=== PATIENT | female | born 1930 | race Caucasian/White ===

== ENCOUNTER 2017-04-03 14:32 | Emergency (ER) | payer MEDICARE, OTHER ==
[2017-04-03] MEDS ORDERED: SODIUM CHLORIDE 0.9% 500 ML IV STA (15:05)
[2017-04-03] MEDS ORDERED: SODIUM CHLORIDE 0.9% 1,000 ML IV STA (15:05)
[2017-04-03] MEDS ORDERED: RX INFO: IV CONTRAST WAS GIVEN 1 EACH MISC MISCELLANE PRN (15:05)
[2017-04-03] MEDS ORDERED: MORPHINE SULFATE 4 MG/ML SYRINGE IV STA (15:05)
--- NOTE | 2017-04-03 15:25 | ED ---
General Adult HPI - General Source: patient, EMS, RN notes reviewed, old records reviewed Mode of arrival: EMS Limitations: no limitations <Michael Velásquez - Last Filed: 04/03/17 15:24> <Michael Newton - Last Filed: 04/03/17 19:28> - General Chief complaint: Fall Stated complaint: Fall Time Seen by Provider: 04/03/17 14:34 - History of Present Illness Initial comments: This is a 78-year-old female to the ER for evaluation today. Patient denies they for evaluation regarding follow-up. Patient is unsure of the events surrounding fall, unsure why she fell but she thinks was mechanical she was walking to her dorm ended up on the ground. Patient complains of breath. Also complains of hitting her head. No blood thinners. Patient denies headache chest pain or shortness of breath. No abdominal pain. (Michael Velásquez) - Related Data Home Medications Medication Instructions Recorded Confirmed ALPRAZolam [Xanax] 0.25 mg PO BID 04/03/17 04/03/17 Apixaban [Eliquis] 2.5 mg PO BID 04/03/17 04/03/17 Aspirin 81 mg PO DAILY@119904/03/17 04/03/17 Atorvastatin [Lipitor] 40 mg PO DAILY@199904/03/17 04/03/17 Cetirizine HCl 10 mg PO QA 04/03/17 04/03/17 Cholecalciferol (Vitamin D3) 2,000 unit PO 04/03/17 04/03/17 [Vitamin D3] Cyanocobalamin [Vitamin B-12] 500 mcg PO DAILY@199904/03/17 04/03/17 Furosemide [Lasix] 40 mg PO BID@0800,1400 04/03/17 04/03/17 Levothyroxine Sodium [Synthroid] 100 mcg PO DAILY@199904/03/17 04/03/17 Magnesium Oxide [Mag-Ox] 400 mg PO DAILY@119904/03/17 04/03/17 Metoprolol Succinate (ER) [Toprol 100 mg PO QA 04/03/17 04/03/17 Xl] Omeprazole [PriLOSEC] 20 mg PO DAILY@199904/03/17 04/03/17 QUEtiapine FUMARATE [SEROquel] 25 mg PO QAM 04/03/17 04/03/17 Rivastigmine 4.6MG/24Hr Patch 1 patch TRANSDERM Q24HR 04/03/17 04/03/17 [Exelon 4.6MG/24Hr Patch] Sennosides [Senna] 8.6 mg PO DAILY@199904/03/17 04/03/17 Sertraline [Zoloft] 100 mg PO QA 04/03/17 04/03/17 Spironolactone [Aldactone] 25 mg PO QAM 04/03/17 04/03/17 Allergies Allergy/AdvReac Type Severity Reaction Status Date / Time No Known Allergies Allergy Unverified 04/03/17 15:07 Review of Systems ROS Other: All systems not noted in ROS Statement are negative. <Michael Velásquez - Last Filed: 04/03/17 15:24> ROS Other: All systems not noted in ROS Statement are negative. <Michael Newton - Last Filed: 04/03/17 19:28> ROS Statement: Those systems with pertinent positive or pertinent negative responses have been documented in the HPI. Past Medical History Past Medical History: Hypertension History of Any Multi-Drug Resistant Organisms: None Reported Past Surgical History: Appendectomy, Hysterectomy Past Psychological History: Depression Smoking Status: Current every day smoker Past Alcohol Use History: None Reported Past Drug Use History: None Reported <Michael Velásquez - Last Filed: 04/03/17 15:24> General Exam Limitations: no limitations General appearance: alert, in no apparent distress Head exam: Present: atraumatic, normocephalic, normal inspection Eye exam: Present: normal appearance, PERRL, EOMI. Absent: scleral icterus, conjunctival injection, periorbital swelling ENT exam: Present: normal exam, mucous membranes moist Neck exam: Present: normal inspection. Absent: tenderness, meningismus, lymphadenopathy Respiratory exam: Present: normal lung sounds bilaterally. Absent: respiratory distress, wheezes, rales, rhonchi, stridor Cardiovascular Exam: Present: regular rate, normal rhythm, normal heart sounds. Absent: systolic murmur, diastolic murmur, rubs, gallop, clicks GI/Abdominal exam: Present: soft, normal bowel sounds. Absent: distended, tenderness, guarding, rebound, rigid Extremities exam: Present: normal inspection, full ROM, normal capillary refill. Absent: tenderness, pedal edema, joint swelling, calf tenderness Back exam: Present: normal inspection Neurological exam: Present: alert, oriented X3, CN II-XII intact Psychiatric exam: Present: normal affect, normal mood Skin exam: Present: warm, dry, intact, normal color. Absent: rash <Michael Velásquez - Last Filed: 04/03/17 15:24> EKG Findings - EKG Comments: EKG Findings:: EKG shows A. fib rate of 60, QRS 100, QTC 456 <Michael Velásquez - Last Filed: 04/03/17 15:24> Medical Decision Making <Michael Velásquez - Last Filed: 04/03/17 15:24> - Lab Data Result diagrams: 04/03/17 16:27 04/03/17 16:27 <Michael Newton - Last Filed: 04/03/17 19:28> - Medical Decision Making Patient felt short of breath after the CAT scan I did an EKG showed atrial fibrillation at 80 bpm QRS is 92 QT interval 386 QTC is 467 per patient's EKG shows no acute changes from the earlier EKG. I went back into reevaluate the patient she stated the shortness of breath had subsided and she is feeling better now. Patient is without symptoms shoulder x-ray shows no acute abnormality Family is aware that the patient has been unstable the patient is unwilling to move out of her current facility and no one is willing to stay with her and they are aware of the fall risks that this presents to the daughter states she will be looking into more care or possibly moving her to a fdc. (Michael Newton) - Lab Data Lab Results 04/03/17 04/03/17 04/03/17 Range/Units 15:27 16:27 16:27 WBC 4.9 (3.8-10.6) k/uL RBC 3.84 (3.80-5.40) m/uL Hgb 12.1 (11.4-16.0) gm/dL Hct 36.6 (34.0-46.0) % MCV 95.3 (80.0-100.0) fL MCH 31.5 (25.0-35.0) pg MCHC 33.1 (31.0-37.0) g/dL RDW 15.2 (11.5-15.5) % Plt Count 170 (150-450) k/uL Neutrophils % 63 % Lymphocytes % 25 % Monocytes % 7 % Eosinophils % 2 % Basophils % 0 % Neutrophils # 3.1 (1.3-7.7) k/uL Lymphocytes # 1.2 (1.0-4.8) k/uL Monocytes # 0.4 (0-1.0) k/uL Eosinophils # 0.1 (0-0.7) k/uL Basophils # 0.0 (0-0.2) k/uL PT 11.6 (9.0-12.0) sec INR 1.2 H (<1.2) APTT 25.6 (22.0-30.0) sec Sodium (137-145) mmol/L Potassium (3.5-5.1) mmol/L Chloride (98-107) mmol/L Carbon Dioxide (22-30) mmol/L Anion Gap mmol/L BUN (7-17) mg/dL Creatinine (0.52-1.04) mg/dL Est GFR (MDRD) Af Amer (>60 ml/min/1.73 sqM) Est GFR (MDRD) Non-Af (>60 ml/min/1.73 sqM) Glucose (74-99) mg/dL Calcium (8.4-10.2) mg/dL Phosphorus (2.5-4.5) mg/dL Magnesium (1.6-2.3) mg/dL Total Bilirubin (0.2-1.3) mg/dL AST (14-36) U/L ALT (9-52) U/L Alkaline Phosphatase (38-126) U/L Total Creatine Kinase (30-135) U/L CK-MB (CK-2) (0.0-2.4) ng/mL CK-MB (CK-2) Rel Index Troponin I (0.000-0.034) ng/mL Total Protein (6.3-8.2) g/dL Albumin (3.5-5.0) g/dL Urine Color Light Yellow Urine Appearance Clear (Clear) Urine pH 5.5 (5.0-8.0) Ur Specific Fitzhugh 1.007 (1.001-1.035) Urine Protein Negative (Negative) Urine Glucose (UA) Negative (Negative) Urine Ketones Negative (Negative) Urine Blood Small H (Negative) Urine Nitrite Negative (Negative) Urine Bilirubin Negative (Negative) Urine Urobilinogen <2.0 (<2.0) mg/dL Ur Leukocyte Esterase Negative (Negative) Urine RBC 2 (0-5) /hpf Urine WBC 1 (0-5) /hpf Ur Squamous Epith Cells <1 (0-4) /hpf Urine Bacteria Rare H (None) /hpf Hyaline Casts 3 H (0-2) /lpf 04/03/17 04/03/17 Range/Units 16:27 16:27 WBC (3.8-10.6) k/uL RBC (3.80-5.40) m/uL Hgb (11.4-16.0) gm/dL Hct (34.0-46.0) % MCV (80.0-100.0) fL MCH (25.0-35.0) pg MCHC (31.0-37.0) g/dL RDW (11.5-15.5) % Plt Count (150-450) k/uL Neutrophils % % Lymphocytes % % Monocytes % % Eosinophils % % Basophils % % Neutrophils # (1.3-7.7) k/uL Lymphocytes # (1.0-4.8) k/uL Monocytes # (0-1.0) k/uL Eosinophils # (0-0.7) k/uL Basophils # (0-0.2) k/uL PT (9.0-12.0) sec INR (<1.2) APTT (22.0-30.0) sec Sodium 141 (137-145) mmol/L Potassium 3.9 (3.5-5.1) mmol/L Chloride 107 (98-107) mmol/L Carbon Dioxide 25 (22-30) mmol/L Anion Gap 9 mmol/L BUN 22 H (7-17) mg/dL Creatinine 0.99 (0.52-1.04) mg/dL Est GFR (MDRD) Af Amer >60 (>60 ml/min/1.73 sqM) Est GFR (MDRD) Non-Af 53 (>60 ml/min/1.73 sqM) Glucose 97 (74-99) mg/dL Calcium 8.9 (8.4-10.2) mg/dL Phosphorus 3.7 (2.5-4.5) mg/dL Magnesium 2.0 (1.6-2.3) mg/dL Total Bilirubin 0.6 (0.2-1.3) mg/dL AST 27 (14-36) U/L ALT 32 (9-52) U/L Alkaline Phosphatase 83 (38-126) U/L Total Creatine Kinase 43 (30-135) U/L CK-MB (CK-2) 0.9 (0.0-2.4) ng/mL CK-MB (CK-2) Rel Index 2.1 Troponin I <0.012 (0.000-0.034) ng/mL Total Protein 6.4 (6.3-8.2) g/dL Albumin 3.6 (3.5-5.0) g/dL Urine Color Urine Appearance (Clear) Urine pH (5.0-8.0) Ur Specific Fitzhugh (1.001-1.035) Urine Protein (Negative) Urine Glucose (UA) (Negative) Urine Ketones (Negative) Urine Blood (Negative) Urine Nitrite (Negative) Urine Bilirubin (Negative) Urine Urobilinogen (<2.0) mg/dL Ur Leukocyte Esterase (Negative) Urine RBC (0-5) /hpf Urine WBC (0-5) /hpf Ur Squamous Epith Cells (0-4) /hpf Urine Bacteria (None) /hpf Hyaline Casts (0-2) /lpf Disposition <Michael Velásquez - Last Filed: 04/03/17 15:24> Time of Disposition: 19:27 <Michael Newton - Last Filed: 04/03/17 19:28> Clinical Impression: Fall, Head injury, Compression fracture Disposition: HOME SELF-CARE Instructions: Fall Prevention for Older Adults (ED), Head Injury (ED) Referrals: Fani Ackerman MD [Primary Care Provider] - 1-2 days
[2017-04-03 15:52] LABS: Appearance,Urine Clear (Clear); Bacteria,Urine Rare /hpf; Bilirubin,Urine Negative (Negative); Glucose,Urine (UA) Negative (Negative); Ketones,Urine Negative (Negative); Leukocyte Esterase,Urine Negative (Negative); Nitrite,Urine Negative (Negative); PH, Urine 5.5 (5.0-8.0); Particle Count 620; Protein,Urine Negative (Negative); RBC,Urine 2 /hpf (0-5); Specific Gravity,Urine 1.007 (1.001-1.035); Squamous Epithelial Cell,Urine <1 /hpf (0-4); UA Billing (MACRO vs. MICRO) MICRO; Urobilinogen,Urine <2.0 mg/dL (<2.0); WBC,Urine 1 /hpf (0-5)
[2017-04-03 16:45] LABS: Basophils % (A) 0 %; CH 32.2; Eosinophils # (A) 0.1 k/uL (0-0.7); Eosinophils % (A) 2 %; HCT 36.6 % (34.0-46.0); HDW 2.91; HGB 12.1 gm/dL (11.4-16.0); Luc % (Auto) 2; Lymphocytes # (A) 1.2 k/uL (1.0-4.8); Lymphocytes % (A) 25 %; MCH 31.5 pg (25.0-35.0); MCHC 33.1 g/dL (31.0-37.0); MCV 95.3 fL (80.0-100.0); Mean Platelet Volume 7.7; Monocytes # (A) 0.4 k/uL (0-1.0); Monocytes % (A) 7 %; Neutrophils # (A) 3.1 k/uL (1.3-7.7); Neutrophils % (A) 63 %; RBC 3.84 m/uL (3.80-5.40); RDW 15.2 % (11.5-15.5); WBC 4.9 k/uL (3.8-10.6); WBC (Perox) 5.29
[2017-04-03 16:53] LABS: INR 1.2 (<1.2); Partial Thromboplastin Time 25.6 sec (22.0-30.0); Prothrombin Time 11.6 sec (9.0-12.0)
[2017-04-03 16:55] LABS: ALT 32 U/L (9-52); AST 27 U/L (14-36); Alkaline Phosphatase 83 U/L (38-126); Anion Gap 9 mmol/L; Blood Urea Nitrogen 22 mg/dL (7-17); Calcium 8.9 mg/dL (8.4-10.2); Carbon Dioxide 25 mmol/L (22-30); Chloride 107 mmol/L (98-107); Glucose 97 mg/dL (74-99); Non-African American GFR(MDRD) 53 (>60 ml/min/1.73 sqM); Phosphorous 3.7 mg/dL (2.5-4.5); Potassium 3.9 mmol/L (3.5-5.1); Sodium 141 mmol/L (137-145); Total Bilirubin 0.6 mg/dL (0.2-1.3); Total Protein 6.4 g/dL (6.3-8.2)
[2017-04-03 17:06] LABS: Creatine Kinase 43 U/L (30-135)
[2017-04-03 17:20] LABS: Creatine Kinase MB 0.9 ng/mL (0.0-2.4); Troponin I <0.012 ng/mL (0.000-0.034)
--- NOTE | 2017-04-03 17:49 | CT ---
EXAMINATION TYPE: CT brain fina carrillo DATE OF EXAM: 04/03/2017 COMPARISON: NONE HISTORY: Patient poor historian. Patient fell today. CT DLP: 1623 mGycm Automated exposure control for dose reduction was used. TECHNIQUE: CT scan of the head and cervical spine are performed without contrast. FINDINGS: There is cerebral cortical atrophy. There is mild patchy hypodensity around the frontal h orns of the lateral ventricles. There is no mass effect nor midline shift. There is no sign of intrac ranial hemorrhage. The calvarium is intact. Cervical vertebra fairly normal alignment. There is a few millimeter anterior subluxation of C6 in re lation to C7. There is narrowing of disc spaces throughout the cervical spine. The skull base is inta ct. There is no evidence of a fracture. IMPRESSION: Cerebral atrophy. Chronic small vessel ischemia. No acute intracranial abnormality. Multilevel moderate cervical spondylosis. No fracture.
--- NOTE | 2017-04-03 17:55 | CT ---
EXAMINATION TYPE: CT ChestAbdPelvis w con DATE OF EXAM: 04/03/2017 COMPARISON: NONE HISTORY: Patient poor historian. Patient fell today. CT DLP: 1358 mGycm Automated exposure control for dose reduction was used. CONTRAST: CT scan of the chest, abdomen and pelvis is performed without Oral Contrast and with IV Contrast, pat ient injected with 80 mL of Visipaque 320. FINDINGS: There is coarse interstitial density in the mid and lower lung llamas. Heart is significantly enlarge d. There is no pleural effusion. There is no pneumothorax. Thoracic aorta is atheromatous. There is n o pericardial effusion. There is no pleural effusion. Liver shows no focal defect. There are multiple gallstones. Bile ducts are not dilated. Spleen appear s normal. There is no pancreatic mass. There is a 4 cm cortical cyst on the upper pole right kidney. There is no hydronephrosis. There is a 7 mm calculus in the lower pole right kidney. There is no retroperitoneal adenopathy. Abdominal aorta is atheromatous. There is no ascites. Bladder distends smoothly. There is no sign of a pelvic mass. I see no intestinal wall thickening. There are no dilated loops. There is no evidence of a bowel obst ruction. There are spondylotic changes throughout the thoracic and lumbar spine. There is 15-20% loss of height of L2 vertebral body of uncertain age. I see no bony destructive process. IMPRESSION: Cardiomegaly. Prominent fibrotic changes with some atelectasis at the lung bases. Choleli thiasis. Right renal cortical cyst. No evidence of traumatic injury within the abdomen and pelvis. No nobstructing right renal calculus. Mild L2 compression deformity of uncertain age. No rib fracture seen.
[2017-04-03 18:42] VITALS: BP 144/69; PULSE 80; RESP 16; TEMP 98.1
--- NOTE | 2017-04-03 19:25 | XR ---
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 There is obliteration of the subacromial joint space. There is widening of AC joint space. I see no fracture. 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 No fracture seen. Obliterated subacrom ial joint space.
[2017-04-03] MEDS ORDERED: KETOROLAC 60 MG/2 ML VIAL IVP STA (19:28)
== END 2017-04-03 20:37 | disposition home or self-care (01) ==
LOC: EC 14:32
DX: S32.029A Unspecified fracture of second lumbar vertebra, initial encounter for closed fracture (principal); S09.90XA Unspecified injury of head, initial encounter; I48.91 Unspecified atrial fibrillation; I10 Essential (primary) hypertension; F32.9 Major depressive disorder, single episode, unspecified; F17.200 Nicotine dependence, unspecified, uncomplicated; Z79.01 Long term (current) use of anticoagulants; Z79.82 Long term (current) use of aspirin; Z79.899 Other long term (current) drug therapy; W01.198A Fall on same level from slipping, tripping and stumbling with subsequent striking against other object, initial encounter
CPT/HCPCS: 36415; 93005; 80053; 82550; 82553; 83735; 84100; 84484; 85025; 85610; 85730; 81001; 87086; 73030; 72125; 70450; 71260; 74177; 99285; 96374; 96375; 96361 ×4; J2270; Q9967; J1885